=== PATIENT | female | born 1985 | race Hispanic/Latino ===

== ENCOUNTER 2016-11-25 18:03 | Inpatient (IN) | payer OTHER ==
[~2016-11-25] VITALS: Ht 167.6 cm; Wt 85.7 kg
[2016-11-25 20:16] LABS: ABSOLUTE BASOPHIL COUNT 0 /CUMM (0.0-0.2); ABSOLUTE EOSINOPHIL COUNT 0.1 /CUMM (0.0-0.7); ABSOLUTE GRANULOCYTE CT 7.5 /CUMM (1.4-6.5); ABSOLUTE LYMPH COUNT 1.5 /CUMM (1.2-3.4); ABSOLUTE MONOCYTE COUNT 0.9 /CUMM (0.10-0.60); BASOPHIL % 0.3 % (0.0-2.0); EOSINOPHIL % 0.9 % (0-5); GRANULOCYTE % 75.1 % (42.2-75.2); HEMATOCRIT 29.9 % (37-47); MEAN CORPUSCULAR HGB 27.1 PG (27.0-31.0); MEAN CORPUSCULAR HGB CONC 32.8 G/DL (33.0-37.0); MEAN CORPUSCULAR VOLUME 82.6 FL (81.0-99.0); MEAN PLATELET VOLUME 9.9 FL (7.4-10.4); PLATELET COUNT 190 /CUMM (130-400); RBC DISTRIBUTION WIDTH 17.1 % (11.5-14.5); RED BLOOD CELL CT 3.62 /CUMM (4.20-5.40)
--- NOTE | 2016-11-27 09:02 | History & Physical ---
General Information and HPI MD Statement: I have seen and personally examined MARGO MIRANDA and documented this H&P. The patient is a 31 year old female at [36] weeks and [1] days gestation who presented with a chief complaint of iol[]. 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 PT IS LATE TRANSFER. ELEVATED 1HR GCT AND NORMAL GTT. EDC BASED ON 6W6D ULTRASOUND. UPCr 2102, 24HR TOTAL PROTEIN 3472MG (11/18). 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 EENTM: Reports: no symptoms. Cardiovascular: Reports: no symptoms. Respiratory: Reports: no symptoms. GI: Reports: no symptoms. Genitourinary: Reports: no symptoms. Musculoskeletal: Reports: no symptoms. Skin: Reports: no symptoms. Neurological/Psychological: Reports: no symptoms. Hematologic/Endocrine: Reports: no symptoms. Immunologic/Allergic: Reports: no symptoms. All Other Systems: Reviewed and Negative Exam & Diagnostic Data Obstetric Exam Wgt Gained During : 30 Pelvimetry: GYNECOID Dilation (cm): 0 Effacement (%): 0 Station: -2 Membranes: intact Fluid: unknown Fundal Height (cm): 40 Multiple Gestation? No Contractions: NONE #1 - FHR Baseline: 140 Category: 1 Estimated Weight: 7 Presentation: CEPHALIC Patient for Induction? Yes Moody Score Moody Score Response Value Cervix Position: posterior 0 Cervix Consistency: medium 1 Cervix Effacement: 0-30% 0 Cervix Dilation: closed 0 Cervix Station: -3 0 Total 1 Physical Exam: HEENT: NCAT CHEST: CTA CV: NL S1S2 ABD: GRAVID, CEPHALIC, EFW 7 : LTCP EXT: NO C/C/E NEURO: NONFOCAL Labs Blood Type & Rh: O POS Antibody Screen: NEG Hct/Hgb & Platelets #1: Hct/Hgb & Platelets #2: Rubella: IMM VDRL #1: NR VDRL #2: NR HbsAg: NEG HIV #1: NEG HIV #2 NEG 1 Hr P 3 Hr P/156/145/118 Group B Strep: NEG Initial Ultrasound: WNL Anatomy Ultrasound: WNL Genetic Testing: NEG Assessment/Plan Assessment/Plan: 36 WEEK WORSENING PROTEINURIA POOR MOODY SCORE PT ADMITTED AND UNDERWENT MISOPROSTIL X2 CERVICAL RIPENING FOLLOWED BY PITOCIN INDUCTION OF LABOR. TODAY IS DAY 2 OF PITOCIN. As Ranked By This Provider Problem List: 1. Membranous nephropathy determined by biopsy 2. 36 weeks gestation of Core Measures/Miscellaneous Venous Thromboembolism VTE Risk Factors: / VTE Contraindications: No Contraindications VTE Diagnosis: No Beta Prashanth Is Beta Prashanth a Home Med? No Antibiotics Is Patient on Antibiotics? Yes
--- NOTE | 2016-11-27 19:12 | PN- Obstetrical ---
Subjective Subjective: increased pain Review of Systems: UCs q2-3 pitocin at 20 Objective Last 24 Hrs of Vital Signs/I&O vss Physical Exam: Cx 1-2 thick -2 Obstetric Exam Dilation (cm): 1 Effacement (%): 10 Station: -2 Membranes: intact Fluid: clear Multiple Gestation? No Contractions: q2-3 Infant #1 - FHR Baseline: 140 Category: 1 Estimated Weight: 7 Presentation: CEPHALIC Assessment/Plan Assessment/Plan 36w2d IOL day 2 discontinue pitocin overnight restart in am Problem List: 1. Membranous nephropathy determined by biopsy 2. 36 weeks gestation of
--- NOTE | 2016-11-28 20:00 | Operative Report ---
Operative/Inv Procedure Report Surgery Date: 11/28/16 Name of Procedure: Primary low transverse Pre-Operative Diagnosis: Failed induction Post-Operative Diagnosis: Same Estimated Blood Loss: 650 mL Surgeon/Teletype Technician: NATE BLANCA MD,Radha Worley Anesthesia: epidural Operative/Procedure Note Note: The patient was brought to the operating room placed on the OR table in the sitting position where she underwent spinal anesthetic without complication. She was repositioned into dorsal supine with a block under her right. A Armstrong catheter was then placed and drained clear yellow urine. The abdomen was prepped and draped in the usual sterile fashion and tested. Venodyne boots were previously placed and activated. A Pfannenstiel skin incision was made with the scalpel and taken down to the layer of the fascia.. The fascia was nicked in the midline and extended bilaterally. The underlying peritoneum was grasped between 2 clamps elevated and incised with Metzenbaum scissors. This was extended bilaterally. The rectus muscles were sharply dissected off of the overlying fascia as well. A bladder flap was created using Metzenbaum scissors and placed behind the Prabhakar bladder blade. A low transverse uterine incision was made with the scalpel and the uterus was entered. A liveborn female at 1 was delivered from our OT position atraumatically and handed off to the awaiting building insulation installer. The placenta was then manually removed. The uterus was exteriorized and wiped clean with a wet lap sponge. Uterine incision was closed in 2 layers of 0 Polysorb, the second imbricating the first. The abdomen and pelvis were irrigated. Uterus placed back into the abdominal cavity and the suture line was once again visualized and noted to be hemostatic. The peritoneal lining was closed using 2-0 Polysorb in a running nonlocking fashion. Rectus muscles were reapproximated withmattress suture of 2-0 Polysorb. The fascia layer was then closed with 0 Polysorb in a running nonlocking fashion. A [id number] was also used in the midline for better hemostasis. Subcutaneous tissues were irrigated and coagulated were needed. The skin was closed using anuja. Dry sterile dressing was applied to the wound and the patient was transferred to the recovery room in satisfactory condition. All needle, sponge, and instrument counts were correct at the end of the procedure 4.
--- NOTE | 2016-11-28 20:03 | Labor & Delivery Summary ---
Delivery Summary Section: Section: primary Indication: Failed induction Anesthesia: Spinal Placenta: Placenta: normal, 3 vessel, manual Anesthesia: spinal Baby's Weight: 7/6 Apgars - 1 Min: 9 Apgars - 5 Min: 9
[2016-11-29 08:59] LABS: ABSOLUTE BASOPHIL COUNT 0 /CUMM (0.0-0.2); ABSOLUTE EOSINOPHIL COUNT 0.1 /CUMM (0.0-0.7); ABSOLUTE GRANULOCYTE CT 6.8 /CUMM (1.4-6.5); ABSOLUTE LYMPH COUNT 1.6 /CUMM (1.2-3.4); ABSOLUTE MONOCYTE COUNT 0.8 /CUMM (0.10-0.60); BASOPHIL % 0.3 % (0.0-2.0); EOSINOPHIL % 1.2 % (0-5); GRANULOCYTE % 73.4 % (42.2-75.2); HEMATOCRIT 26.7 % (37-47); MEAN CORPUSCULAR HGB 27.2 PG (27.0-31.0); MEAN CORPUSCULAR HGB CONC 33.1 G/DL (33.0-37.0); MEAN CORPUSCULAR VOLUME 82.3 FL (81.0-99.0); MEAN PLATELET VOLUME 9.5 FL (7.4-10.4); PLATELET COUNT 157 /CUMM (130-400); RBC DISTRIBUTION WIDTH 17.5 % (11.5-14.5); RED BLOOD CELL CT 3.24 /CUMM (4.20-5.40); WHITE BLOOD CELL COUNT 9.3 /CUMM (4.8-10.8)
--- NOTE | 2016-11-29 12:39 | PN- Post Delivery/GYN ---
Subjective Subjective: PAIN WITH MOVEMENT Review of Systems: NEG Objective Last 24 Hrs of Vital Signs/I&O VSS Physical Exam: ABD: DISTENDED, TENDER; INCISION C/D/I EXT: NT Assessment/Plan Assessment/Plan S/P C/S POD1 ADVANCE DIET INCREASE ACTIVITY ORAL MEDS Problem List: 1. 36 weeks gestation of 2. Membranous nephropathy determined by biopsy
--- NOTE | 2016-11-30 09:42 | PN- Post Delivery/GYN ---
Subjective Subjective: FEELING BETTER Review of Systems: POS FLATUS Objective Last 24 Hrs of Vital Signs/I&O VSS AFEBRILE Physical Exam: INCISION C/D/I EXT NT Assessment/Plan Assessment/Plan S/P C/S POD2 STABLE MOM UPCr NEPHROLOGY CONSULT Problem List: 1. 36 weeks gestation of 2. Membranous nephropathy determined by biopsy
--- NOTE | 2016-11-30 15:01 | Cons- Nephrology ---
General Information and HPI Consulting Request Date of Consult: 11/30/16 Requested By: YOLA DELVALLE MD Reason for Consult: Glomerulonephritis History of Present Illness: The patient is a 31-year-old woman primipara with a known history of idiopathic membranous glomerulonephritis (biopsy 2012 at [facility]) who is now 2 days status post at 36 weeks with delivery of a healthy baby girl. She was first told of proteinuria when she was a teenager without any history of hypertension and with normal renal function which she continues to have. 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 She is now considering transferring her nephrology care more locally. There was no evidence for toxemia during the . Her proteinuria did seem to worsen (3.5 g/24 hours on 11/18) but I am not currently privy to her previous protein excretion data. Past medical history: As above; Family history: One of 11 siblings, no history of kidney disease in parents or other family members Social history: Former smoker, no history of alcohol or drug abuse, , lives with her . Allergies/Medications Allergies: Coded Allergies: nickel (Intermediate, RASH 11/25/16) sulfamethoxazole (From BACTRIM) (Intermediate, HIVES 11/25/16) trimethoprim (From BACTRIM) (Intermediate, HIVES 11/25/16) Review of Systems Review of Systems: Constitutional: Reports: no symptoms. EENTM: Reports: no symptoms. Cardiovascular: Reports: no symptoms. Respiratory: Reports: no symptoms. GI: Reports: Abdominal discomfort. Constipated. Genitourinary: Reports: no symptoms. Musculoskeletal: Reports: no symptoms. Skin: Reports: no symptoms. Neurological/Psychological: Reports: no symptoms. Hematologic/Endocrine: Reports: no symptoms. Immunologic/Allergic: Reports: no symptoms. All Other Systems: Reviewed and Negative Past History Surgical History Surgical History: LASIK TOPX2 Psychosocial History Smoking Status: Former Smoker Exam & Diagnostic Data Vital Signs and I&O General: Well-developed, female in NAD Skin: No rash or jaundice HEENT: Conjunctivae pink, sclerae anicteric, mucous membranes moist Neck: Without masses or thyromegaly, no supraclavicular or cervical adenopathy Chest: Clear to P&A Heart: Regular rate and rhythm without S3 or rub Abdomen: Soft with mild diffuse tenderness Extremities: Without trace to 1+ edema, no livedo Neuro: No focal findings, no asterixis or myoclonus Assessment/Plan Assessment/Recommendations Assessment: 31-year-old woman 2 days status post delivery at 36 weeks of a healthy baby girl, with a history of biopsy-proven idiopathic membranous glomerulonephritis. Proteinuria is said to have worsened during her leading to the decision for an earlier section. Protein excretion was as high as 3.5 g per 24 hours on 11/18. I do not know what her usual protein excretion is. She has done well with no significant complications. Blood pressure and renal function are normal. She wishes to transfer her nephrology care locally. Recommendations: 1. No further diagnostic or renal therapeutics indicated at this time 2. I will obtain her records from her [place] sales representative [employer] and I have given her the information to contact my office for outpatient follow-up. Thank you for asking me to see Sabrina Tan.
[2016-12-01] MEDS ORDERED: PERCOCET 5-3251 EACH PO (08:52)
[2016-12-01] MEDS ORDERED: DOCUSATE SODIU100 M3 PO (08:52)
[2016-12-01] MEDS ORDERED: IBUPROFEN800 M1 PO (08:52)
--- NOTE | 2016-12-09 12:27 | Surgical Discharge Summary ---
Visit Information Visit Dates Admission Date: 11/25/16 Discharge Date: 12/01/16 History of Present Illness Chief Complaint: 37 week worsening nephropathy Surgical History Pertinent Surgical History: LASIK TOPX2 Psychosocial History What is Your Primary Language? Jordanian Review of Systems: Negative for Hospital Course Course Attending Physician: YOLA DELVALLE MD Primary Care Physician: PATIENT HAS NO PRIMARY CARE DR Hospital Course: The patient was admitted on the for induction of labor. She had a poor Brooke score and she was given misoprostol cervical ripening. She did well overnight on hospital day #2 the patient received misoprostol in the morning for cervical ripening. She received Pitocin induction in the afternoon and this was DC'd for rest overnight. On hospital day #3 the patient underwent Pitocin induction throughout the day she was rested overnight. On hospital day #4 the patient continued Pitocin induction for several hours and then was taken for a primary for failed induction. She underwent without complication was sent to recovery in good condition. On postoperative day #1 the Armstrong was discontinued diet was advanced and activity was increased. H&H returned stable as well as her vital signs. On postoperative day #2 the patient continued to do well was seen by nephrology and will be seen by nephrology as an outpatient. Postoperative day #3 she was discharged home. Allergies: Coded Allergies: nickel (Intermediate, RASH 11/25/16) sulfamethoxazole (From BACTRIM) (Intermediate, HIVES 11/25/16) trimethoprim (From BACTRIM) (Intermediate, HIVES 11/25/16) Disposition Summary Disposition Principal Diagnosis: 37 week Additional Diagnosis: Membranous nephropathy Discharge Disposition: home or self care Discharge Instructions General Discharge Information Code Status: Full Code Patient's Diet: Regular Patient's Activity: Pelvic rest Follow-Up Instructions/Appts: 1 week incision check Medications at Discharge Discharge Medications: Start taking the following new medications: Ibuprofen (Ibuprofen) 800 MG TABLET 800 Milligram ORAL EVERY SIX HOURS NEEDED as needed for UTERINE CRAMPING Qty = 36 No Refills Comments: Last Taken:12/01/16 Time:1130 Oxycodone HCl/Acetaminophen (Percocet 5-325 MG Tablet) 5 MG-325 MG TABLET 1-2 Tablet ORAL EVERY 4 HOURS NEEDED as needed for PAIN SCALE 4-6 ( MODERATE) Qty = 24 No Refills Comments: Last Taken:12/01/16 Time:1204 Docusate Sodium (Docusate Sodium) 100 MG CAPSULE 100 Milligram ORAL AT BEDTIME as needed for STOOL SOFTENER Qty = 60 No Refills Comments: Last Taken:12/01/16 Time:0754
== END 2016-12-01 19:45 | DRG 765 ==
LOC: GNO 18:03
PROVIDERS: ADMIT Obstetrics & Gynecology
PROC: 3E0P7GC Introduction of Other Therapeutic Substance into Female Reproductive, Via Natural or Artificial Opening (ICD-10-PCS; principal; 2016-11-28)
PROC: 10D00Z1 Extraction of Products of Conception, Low, Open Approach (ICD-10-PCS; principal; 2016-11-28)
DX: O12.14 Gestational proteinuria, complicating childbirth (principal); N02.2 Recurrent and persistent hematuria with diffuse membranous glomerulonephritis; Z3A.36 36 weeks gestation of pregnancy; Z37.0 Single live birth; Z87.891 Personal history of nicotine dependence; O61.0 Failed medical induction of labor
CPT/HCPCS: GNOP; GNOS; 81001; 82436; 82570; 87086; 88307; J0131; J0595; J0690; J1170; J1650; J1885; J7042; J7120